=== PATIENT | male | born 1970 | race Caucasian/White ===

== ENCOUNTER 2018-07-19 07:19 | Observation (INO) | payer OTHER ==
[2018-07-19] MEDS ORDERED: fentaNYL 250 MCG/5 ML INJ ONE (08:15)
[2018-07-19] MEDS ORDERED: MIDAZOLAM 2 MG/2 ML VIAL ONE (08:15)
[2018-07-19] MEDS ORDERED: LIDOCAINE 2% 2 ML INJ ONE (08:15)
[2018-07-19] MEDS ORDERED: ONDANSETRON 4 MG/2 ML VIAL ONE (08:15)
[2018-07-19] MEDS ORDERED: PROPOFOL 200 MG/20 ML VIAL ONE (08:15)
[2018-07-19] MEDS ORDERED: ROCURONIUM 100 MG/10 ML VIAL ONE (08:15)
[2018-07-19] MEDS ORDERED: DEXAMETHASONE 4 MG/ML VIAL ONE (08:15)
[2018-07-19] MEDS ORDERED: PHENYLEPHRINE HCL 100 MCG/ML SYR ONE (08:15)
[2018-07-19] MEDS ORDERED: GLYCOPYRROLATE 0.2 MG/1 ML VIAL ONE (08:15)
--- NOTE | 2018-07-19 08:25 | PDANEPAE ---
ANE History of Present Illness hiatal hernia, here for robotic Iftikhar ANE Past Medical History - Cardiovascular History Hx Hypertension: No Hx Arrhythmias: Yes Hx Chest Pain: No Hx Coronary Artery / Peripheral Vascular Disease: No Hx CHF / Valvular Disease: No Hx Palpitations: No Cardiovascular History Comment: ablation x 2 for PVC's, 2012 - has not seen a youtuber for at least 3 years and was told he did not need to return at that time - Pulmonary History Hx COPD: No Hx Asthma/Reactive Airway Disease: No Hx Recent Upper Respiratory Infection: No Hx Oxygen in Use at Home: No Hx Sleep Apnea: No Sleep Apnea Screening Result - Last Documented: Negative - Neurologic History Hx Cerebrovascular Accident: No Hx Seizures: No Hx Dementia: No Neurologic History Comment: migraine. possible fibromyalgia, has generalized body pain, has lost over 145 pounds in the past few years and is better - Endocrine History Hx Diabetes: No - Renal History Hx Renal Disorders: No - Liver History Hx Hepatic Disorders: No - Neurological & Psychiatric Hx Hx Neurological and Psychiatric Disorders: Yes Neurological / Psychiatric History Comment: anxiety. recovered alcoholic - Cancer History Hx Cancer: No - Congenital Disorder History Hx Congenital Disorders: No - GI History Hx Gastrointestinal Disorders: Yes Gastrointestinal History Comment: GERD. Hiatial hernia - Other Health History Other Health History: nasal polyps. wears glasses for reading - Chronic Pain History Chronic Pain: Yes (generalized, "possibly fibromyalgia") - Surgical History Prior Surgeries: pilonidal cyst x 3. coccyx removal surgery x 2. ablation x 2 for PVC's ANE Review of Systems Review of Systems: - Exercise capacity METS (RN): 5 METS ANE Patient History - Allergies Allergies/Adverse Reactions: pseudoephedrine [From Sudafed] Allergy (Verified 07/08/18 10:16) "like I'm on speed" - Home Medications Home Medications: Adult One Daily Multivit Tab 07/08/18 [Last Taken 3 Days Ago ~07/16/18] Ibuprofen PRN 07/08/18 [Last Taken 2 Weeks Ago ~07/05/18] Indomethacin [Indomethacin] PRN 07/08/18 [Last Taken 2 Weeks Ago ~07/05/18] Omeprazole 07/08/18 [Last Taken 2 Weeks Ago ~07/05/18] Probiotic 07/08/18 [Last Taken 07/18/18] SUMAtriptan [Sumatriptan] PRN 07/08/18 [Last Taken 2 Weeks Ago ~07/05/18] clonazePAM [Clonazepam] 07/08/18 [Last Taken 07/19/18 05:45] - Smoking Hx Smoking Status: Former smoker - Family Anes Hx Family Hx Anesthesia Complications: none ANE Labs/Vital Signs - Vital Signs Height: 195.58 cm Weight: 115.666 kg ANE Physical Exam - Airway Neck exam: FROM Mallampati Score: Class 2 Mouth exam: normal dental/mouth exam - Pulmonary Pulmonary: no respiratory distress - Cardiovascular Cardiovascular: regular rate and rhythym - ASA Status ASA Status: II ANE Anesthesia Plan Anesthesia Plan: general endotracheal anesthesia (did a "quick save" prior to OR instead of the intended "save")
[2018-07-19] MEDS ORDERED: cefOXitin SODIUM 2 GM in NS 100 ML IV ONE (08:34)
--- NOTE | 2018-07-19 08:34 | PDHPUP ---
History & Physical Update H&P update statement: This history and physical update is based on an assessment of the patient which was completed after admission or registration (within 24 hours), but prior to the surgery/procedure. H&P update: H&P reviewed & patient examined, no change in patient's condition since H&P completed
[2018-07-19] MEDS ORDERED: LR 1,000 ML IV ONE (08:41)
[2018-07-19] MEDS ORDERED: BUPIVACAINE 0.5% 30 ML SDV ONE (09:24)
[2018-07-19] MEDS ORDERED: LR 500 ML IV PRN (10:30)
[2018-07-19] MEDS ORDERED: DIAZEPAM 5 MG/ML 1 ML SYR IVP PRN (10:30)
[2018-07-19] MEDS ORDERED: PROMETHAZINE HCL 25 MG/ML INJ IVP PRN (10:30)
[2018-07-19] MEDS ORDERED: NALOXONE HCL 0.4 MG/ML INJ IVP PRN (10:30)
[2018-07-19] MEDS ORDERED: oxyCODONE IR 5 MG TAB PO PRN (10:30)
[2018-07-19] MEDS ORDERED: MEPERIDINE 25 MG/0.5 ML AMP IVP PRN (10:30)
[2018-07-19] MEDS ORDERED: HYDROmorphONE/DILAUDID 2 MG/ML INJ ONE ×2 (11:21→12:08)
--- NOTE | 2018-07-19 11:45 | POSTOPPROG ---
Post Op Note Date of Operation: 07/19/18 Surgeon: Gregorio La Specimen Technician: Dr. Kothari Anesthesiologist: Dr. Shannon Anesthesia: GET(General Endotracheal) Pre-op Diagnosis: GERD Post-op Diagnosis: GERD Procedure: DV fundoplication Inf/Abcess present in the surg proc area at time of surgery?: No EBL: 50-100
[2018-07-19] MEDS ORDERED: fentaNYL 100 MCG/2 ML INJ ONE (11:51)
[2018-07-19] MEDS: fentaNYL 100 MCG/2 ML INJ IVP PRN ×2 (11:54→12:00)
[2018-07-19] MEDS ORDERED: PROMETHAZINE HCL 25 MG/ML INJ ONE (12:03)
[2018-07-19] MEDS: HYDROmorphONE/DILAUDID 2 MG/ML INJ IVP PRN ×2 (12:10→12:27)
[2018-07-19] MEDS: HYDROmorphONE/DILAUDID 1 MG/ML INJ IVP PRN (13:52)
[2018-07-19] MEDS: ONDANSETRON 4 MG/2 ML VIAL IVP PRN ×2 (15:09→20:45)
[2018-07-19] MEDS: OXYCODONE/APAP 5/325 TAB PO PRN ×2 (15:11→21:12)
--- NOTE | 2018-07-19 15:11 | POSTANESTH ---
Post Anesthetic Evaluation Cardiovascular Status: Normal, Stable Respiratory Status: Normal, Stable Level of Consciousness/Mental Status: Can Participate in Eval Pain Control: Adequate, Prn Tx Ordered Nausea/Vomiting Control: Adequate, Prn Tx Ordered Complications Possibly Related to Anesthesia: None Noted
[2018-07-19] MEDS ORDERED: clonazePAM 1 MG TAB PO PRN (16:28)
[2018-07-19] MEDS ORDERED: SUMAtriptan 20 MG/SPRAY BTL NS PRN (16:28)
[2018-07-19] MEDS ORDERED: INDOMETHACIN 25 MG CAP PO PRN (16:45)
[2018-07-20 07:44] VITALS: BP 116/87
[2018-07-20] MEDS: OXYCODONE/APAP 5/325 TAB PO PRN (08:06)
[2018-07-20] MEDS ORDERED: PANTOPRAZOLE SODIUM 40 MG TAB PO SCH (09:00)
[2018-07-20] MEDS: HYDROmorphONE/DILAUDID 1 MG/ML INJ IVP PRN (09:02)
--- NOTE | 2018-07-20 09:26 | GOP ---
DATE OF OPERATION: 07/19/2018 SURGEON: Abundio La MD THERMOMETER MAKER: Dr. Kothari, whose presence was requested by me and medically necessary for the safe and ti kiesha completion of the case. ANESTHESIA: General endotracheal anesthesia per Dr. Shannon. PREOPERATIVE DIAGNOSIS: Gastroesophageal reflux disease. POSTOPERATIVE DIAGNOSIS: Gastroesophageal reflux disease. PROCEDURE PERFORMED: FINDINGS: The patient had a moderate hiatal hernia. No other lesions were identified. ESTIMATED BLOOD LOSS: 50 mL. INDICATIONS: This is a 48-year-old male with a history of reflux. Risks and benefits of procedure d iscussed with the patient, questions were answered and he wished to proceed. DESCRIPTION OF PROCEDURE: PROCEDURE: Robotic hiatal hernia repair and partial fundoplication. COMPLICATIONS: None. DRAINS: None. PROCEDURE: The patient was in the supine position initially. After the induction of adequate genera l endotracheal anesthesia, the patient was moved to the modified lithotomy position. The patient was then prepped and draped in the standard surgical fashion. Marcaine 0.5% was injected throughout the supraumbilical area for local anesthesia. An 8-mm incision was made and the abdominal wall was elevated. A Veress needle was inserted and afte r noting proper pressures, the abdomen was insufflated with carbon dioxide. An 8-mm trocar was place d and a camera followed. There was no apparent damage from trocar placement. Four more ports were p laced, three 8-mm ports in the upper abdomen and one 5-mm port in the right mid abdomen. These were all placed under direct vision after injecting 0.5% Marcaine for local anesthesia. The robot was then docked without difficulty. Robotic instruments were then used to perform the disse ction. The Harmonic scalpel was used to take down the gastrohepatic ligament. Dissection was then c arried over the esophagus exposing the right lexis. The dissection proceeded laterally and the superi or portion of the esophagus and the left lexis were exposed. The vagus nerves were seen and preserved throughout the entire case. Next, the posterior window was opened using blunt dissection and the Perez rmonic scalpel. Once this window was achieved, attention was turned to the short gastrics. A significant portion of the short gastric vessels was taken down using a Harmonic scalpel. This madhav ed up the fundus in its entirety. The mediastinal dissection was then performed. This was carefully performed using blunt dissection and minimal energy component. Once the entire visible portion of t he esophagus was freed and the gastroesophageal junction returned to the abdomen, the repair of the h iatal hernia ensued. Interrupted sutures of 3-0 silk were used to approximate the hiatus posteriorly . Enough room was seen for the esophagus and an instrument tip. The fundus was then brought posteri giovani to the esophagus and the wrap performed. Initial suture took bites of stomach, anterior esophag us, and stomach. Care was taken again to avoid the vagus nerve. Two more sutures of 3-0 silk were u sed to create the wrap inferiorly. This was a loose floppy wrap. No other lesions were identified a t this time. Good hemostasis was noted. The robot was then undocked. Trocars were removed under direct vision. The pneumoperitoneum was all owed to escape. The wounds were thoroughly irrigated. The skin at all sites was closed using 4-0 Mo nocryl in a subcuticular suture. Wounds were sterilely dressed and the patient was returned to the s upine position and extubated. The patient was then taken to the PACU in stable condition. ADDENDUM: A partial posterior wrap was completed. After suturing the fundus to the diaphragm using 3-0 silk, a loose posterior wrap was created at 270 degrees by placing 3 separate interrupted 3-0 cirilo k sutures on each side from the stomach to the esophagus. The area was thoroughly irrigated and aspi rated. Good hemostasis was noted upon completion. /[id number]/MODL
[2018-07-20] MEDS ORDERED: KETOROLAC 30 MG/1 ML SDV IVP ONE (10:11)
--- NOTE | 2018-07-20 10:13 | SOAPPROG ---
SOAP Progress Note Assessment/Plan: Assessment: s/p robotic fundoplication, improving. Toradol, continue clears. Ambulate. Plan d/c when pain improves. Reviewed diet, signs/symptoms of concern. Plan: 07/20/18 10:12 Subjective: Patient c/o RUQ pain, shoulder pain. Ambulating without difficulty. No N/V, zelda clears. Objective: Vital Signs Temp Pulse Resp BP Pulse Ox 36.6 C 102 H 17 116/87 H 93 07/20/18 07:43 07/20/18 07:43 07/20/18 07:43 07/20/18 07:43 07/20/18 07:43 07/19/18 07/20/18 07/21/18 05:59 05:59 05:59 Intake Total 1905 Output Total 150 Balance 1755 Alert, NAD RRR Abd soft, [employer] C/D/I ICD10 Worksheet Patient Problems: Problems Problem Status Onset GERD (gastroesophageal reflux disease) Acute - ICD10 Problem Qualifiers (1) GERD (gastroesophageal reflux disease)
== END 2018-07-20 11:50 | disposition home or self-care (01) ==
LOC: F3E 07:19
PROVIDERS: ADMIT Surgery; ATTEND Surgery
DX: K21.9 Gastro-esophageal reflux disease without esophagitis (principal); K44.9 Diaphragmatic hernia without obstruction or gangrene; G43.909 Migraine, unspecified, not intractable, without status migrainosus; F41.9 Anxiety disorder, unspecified
CPT/HCPCS: 43280; G0378; J0694; J1100; J1170; J1885; J2250; J2370; J2405; J2550; J2704; J3010

== ENCOUNTER → 2018-07-22 | Outpatient (CLI) | payer OTHER | LOC: FIMAGING 17:29 | PROVIDERS: ATTEND Surgery | DX: J98.11 Atelectasis (principal); M43.24 Fusion of spine, thoracic region ==

== ENCOUNTER → 2018-08-12 | Outpatient (CLI) | payer OTHER | LOC: FIMAGING 10:42 | PROVIDERS: ATTEND Surgery | DX: R10.13 Epigastric pain (principal); R07.9 Chest pain, unspecified; Z98.890 Other specified postprocedural states ==